=== PATIENT | female | born 1975 | race Asian ===

== ENCOUNTER 2017-04-13 06:40 | Inpatient (IN) | payer OTHER ==
[2017-04-13] MEDS ORDERED: ELECTROLYTE-148 SOLN 500 ML IV ONE (07:00)
[2017-04-13] MEDS ORDERED: CITRIC ACID/SODIUM CITRATE 30 ML UNIT-DOSE CUP PO ONE (07:30)
[2017-04-13] MEDS ORDERED: ELECTROLYTE-148 SOLN 1,000 ML IV SCH (07:45)
--- NOTE | 2017-04-13 07:57 | HP ---
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 No: Murmur Pulmonary: Yes: Asthma (last 3 years ago) Gastrointestinal: Yes: Constipation Renal/: No: UTI ...: 3 ...Para: 2 ...Term: 2 ...LMP: 07/14/16 ... Weeks Gestation by Dates: 39 ...EDC by Dates: 04/20/17 ...EDC by Sono: 04/20/17 Additional OB History: G1 02/24/2003 primary c/section 7'8" [place] des[place]. G2 01/28/2008 repeat c/section 7'10" [facility] in [place] Heme/Onc: No: Anemia Infectious Disease: No: AIDS, HIV, STD's Psych: No: Addictions, Anxiety, Bipolar, Depression, Panic, Psychosis, Schizophrenia, Other - Past Surgical History Past Surgical History: Yes: (02/06 & 01/12) Hx Myomectomy: No Hx Transabdominal Cerclage: No Additional Surgical History: ear surgery in childhood - Smoking History Have you smoked in the past 12 months: No - Alcohol/Substance Use Hx Alcohol Use: No History of Substance Use: reports: None Home Medications - Allergies Allergies/Adverse Reactions: Allergies Allergy/AdvReac Type Severity Reaction Status Date / Time cat dander Allergy Verified 04/13/17 07:28 egg Allergy Verified 04/13/17 07:28 Fish Containing Products Allergy Verified 04/13/17 07:28 milk Allergy Verified 04/13/17 07:28 No Known Drug Allergies Allergy Verified 02/07/18 07:25 peanut Allergy Verified 04/13/17 07:28 soybean Allergy Verified 04/13/17 07:28 tree and shrub pollen Allergy Verified 04/13/17 07:28 wheat Allergy Verified 04/13/17 07:28 ROACHES Allergy Uncoded 04/13/17 07:28 Physical Exam - Maternity Vital Signs: Selected Entries 04/13/17 07:45 Temperature 98.3 F Pulse Rate 77 Respiratory 18 Rate Blood Pressure 146/84 Weight 159 lb Constitutional: Yes: Well Nourished Eyes: Yes: WNL HENT: Yes: WNL, Atraumatic Neck: Yes: WNL Cardiovascular: Yes: WNL, Regular Rate and Rhythm Lungs: Clear to auscultation Breast(s): Yes: WNL - Abdominal Exam/OB Fundal Height: 38 Number of Fetuses: Single Presentation: Vertex Contractions: No Heart Rate (range): 140 Heart Rate Location: Midline Category: I Accelerations: Uniform Decelerations: None - Vaginal Exam/OB Vaginal Bleediing: No Speculum Exam: No Dilatation (cm): close Effacement (%): unefface Amniotic Membrane Status: Intact Presentation: Vertex/Position Station: -3 - Physical Exam Musculoskeletal: Yes: WNL Extremities: Yes: WNL. No: Calf Tenderness Edema: Yes Edema: LLE: 1+, RLE: 1+ Integumentary: Yes: Incision (pfannensteil scar) Deep Tendon Reflex Grade: Normal +2 ...Motor Strength: WNL Psychiatric: Yes: WNL, Alert, Oriented - Labs Lab Results: Laboratory Tests 04/11/17 04/11/17 04/11/17 08:40 08:40 08:40 WBC 9.4 RBC 4.47 Hgb 12.6 Hct 38.7 MCV 86.5 MCH 28.3 MCHC 32.7 RDW 13.8 Plt Count 173 MPV 10.5 Neutrophils % 67.7 Lymphocytes % 24.3 Monocytes % 5.4 Eosinophils % 2.1 Basophils % 0.5 PT with INR 11.40 INR 1.01 Sodium Potassium Chloride Carbon Dioxide BUN Creatinine AST ALT Urine Protein Negative Urine Ketones Negative Urine Nitrite Negative Ur Leukocyte Esterase Trace Urine WBC (Auto) 2 Urine RBC (Auto) <1 RPR Titer 04/11/17 04/11/17 08:40 08:40 WBC RBC Hgb Hct MCV MCH MCHC RDW Plt Count MPV Neutrophils % Lymphocytes % Monocytes % Eosinophils % Basophils % PT with INR INR Sodium 139 Potassium 3.9 Chloride 106 Carbon Dioxide 24 BUN 6 L Creatinine 0.5 L AST 13 L ALT 17 Urine Protein Urine Ketones Urine Nitrite Ur Leukocyte Esterase Urine WBC (Auto) Urine RBC (Auto) RPR Titer Nonreactive Hemorrhage Risk Assessment - Risk Factors Medium Risk Factors: Yes: Prior , uterine surgery,or multiple laparotomies Risk Score: 1 Risk Level: Medium Risk Problem List - Problems (1) 39 weeks gestation of Code(s): Z3A.39 - 39 WEEKS GESTATION OF (2) Previous section Code(s): Z98.891 - HISTORY OF UTERINE SCAR FROM PREVIOUS SURGERY (3) AMA (advanced maternal age) multigravida 35+ Code(s): O09.529 - SUPERVISION OF ELDERLY MULTIGRAVIDA, UNSPECIFIED TRIMESTER Assessment/Plan 42 yrs , , AMA, previous c/sx2, requests for repeat c/s . GBS neg Plan repeat c/section
[2017-04-13] MEDS ORDERED: morphine SULFATE/Preservative Free 0.5 MG/ML (1cc Syringe) ONE (08:07)
[2017-04-13] MEDS ORDERED: ceFAZolin SODIUM 1 GM VIAL ONE (08:07)
[2017-04-13] MEDS ORDERED: morphine SULFATE/Preservative Free 0.5 MG/ML (1cc Syringe) SPIN ONE (08:18)
[2017-04-13] MEDS ORDERED: ACETAMINOPHEN 325 MG TABLET (FP) PO PRN (08:31)
[2017-04-13] MEDS ORDERED: IBUPROFEN 600 MG TABLET (FP) PO PRN ×2 (08:31→09:18)
[2017-04-13] MEDS ORDERED: ONDANSETRON 4 MG/2 ML VIAL IVPUSH PRN (08:31)
[2017-04-13] MEDS ORDERED: OXYTOCIN 10 UNITS/ML VIAL ONE (08:34)
[2017-04-13 09:03] LABS: ARTERIAL BLOOD GAS BASE EXCESS -2.8 meq/l (-2-2); ARTERIAL BLOOD GAS PCO2 59.7 mmHg (35-45); ARTERIAL BLOOD GAS PO2 11.7 mmHg (80-100); ARTERIAL BLOOD GAS pH 7.25 (7.35-7.45)
[2017-04-13 09:06] LABS: VENOUS PC02 49.1 mmHg (38-52); VENOUS PH 7.31 (7.32-7.42)
[2017-04-13 09:07] LABS: VENOUS PO2 23.4 mmHg (28-48)
[2017-04-13] MEDS ORDERED: IBUPROFEN 800 MG/8 ML IJ IVPB PRN (09:18)
[2017-04-13] MEDS ORDERED: METHYLERGONOVINE MALEATE 0.2 MG/1 ML AMP IM PRN (09:18)
--- NOTE | 2017-04-13 09:31 | OP ---
Operative Note - Note: Operative Date: 04/13/17 Pre-Operative Diagnosis: 39 weeks, previous c/sx2, requests repeat c/s Operation: Repeat LFTC/section, lysisi of adhesions Findings: omentum in front of uterus covring lower segment, lysis of adhesions onental were done to free lower segment . Bladder reflection covered with omentum 8.36 Am , baby girl, Op position , 8/9, wt 6Lbs thick meconium, no Amniotic fluid seen both tubes & ovaries normal DR price die finisher forging present in the room Post-Operative Diagnosis: Other (omental adhesions, Oligohydramnios) Surgeon: Sarah Dan Nitrocellulose Maker: Drew Vazquez Anesthesiologist/TELEVISION RECEIVER ANALYZER: Rubio Serrano Anesthesia: Spinal Specimens Removed: cord segment for cord blood gas. cord blood. placenta Estimated Blood Loss (mls): 800 Drains, Volume Out (mls): 100 (larry color , qiu ) Fluid Volume Replaced (mls): 1,000 (iv Ancef 1 gm iv before incision ) Operative Report Dictated: Yes
--- NOTE | 2017-04-13 09:42 | PN ---
Delivery - Delivery Section: Repeat, Low Flap Transverse (Lysis of adhesions omentum) Type of Anesthesia: Spinal EBL (cc): 800 (qiu output 100 ml larry color) Delivery, Single - Stages of Labor Date 1st Stage Initiatied: 04/13/17 Date of Delivery: 04/13/17 Time of Delivery: 08:36 Date Placenta Delivered: 04/13/17 Time Placenta Delivered: 08:38 Placenta: Yes: Manual Removal, Uterine Exploration - Condition of Infant Beauty Specialist/Geologist Present: Yes Name: Patricia Vizcarra Gender: Female Weight: 6 lb Position: OP Total Hours ROM (Hrs/Mins): 2min, meconiuum - 1 Minute Total Score: 8 5 Minutes Total Score: 9 - Feeding Plan Initial Plan: Exclusive throughout hospitalization Remarks - Remarks Remarks: 42 yrs ( [place]) , , 39 weeks , previous c/section x2, gbs neg , requests repeat c/s Pnc at [facility] & 2, [facility] intraop course uneventful
[2017-04-13] MEDS: ACETAMINOPHEN 1000 MG/100 ML VIAL (NON FORMULARY) IVPB PRN ×2 (10:05→20:51)
--- NOTE | 2017-04-13 10:40 | OP ---
DATE OF OPERATION: 04/13/2017 PREOPERATIVE DIAGNOSIS: 39 weeks, previous section x2, request for repeat section. POSTOPERATIVE DIAGNOSIS: 39 weeks, previous section x2, request for repeat section, oligohydramnios and omental adhesions. PROCEDURE PERFORMED: Repeat [id number]-[id number] section and lysis of adhesions. SURGEON: Sarah Dan MD PYROMETER OPERATOR: NEGAR Morrell ANESTHESIOLOGIST: Rubio Serrano M.D. ANESTHESIA: Spinal. INDICATIONS: This is a 42-year-old 3, para 2-0-0-2 female, whose EDC is April 20, and request for repeat . Refuses tubal ligation. The patient is not in labor. DESCRIPTION OF PROCEDURE: The patient's abdomen was shaved and prepped. A Pruitt catheter was placed. She was taken to the operating room table. Spinal anesthesia was given. She was placed in the supine position. The abdomen was painted and draped in the usual manner. A Pfannenstiel incision was made through the previous scar, through the skin and subcutaneous tissue. The scar tissue was incised transversely. The anterior rectus sheath was incised transversely. The rectus muscle was from the rectus sheath. The parietal peritoneum was opened vertically. There were omental adhesions covering the lower part of the uterus and lower uterine segment and the bladder completely. So the omental adhesions were clamped, cut and lysed. Lysis was done. Then ligation with 3-0 plain catgut was done, so the lower segment was freed of the omental adhesions. The bladder reflection was covered with omentum too. The lower uterine segment then was incised transversely. There was no amniotic fluid noted. Moderately thick meconium was noted. The baby was delivered at 8:36 a.m. from the OP position. The cord was clamped and cut. Immediate oral and nasal suction was done. The baby was handed over to the edge trimmer, Dr. Vizcarra, who was present in the room. A cord segment was sent for cord blood gases. Cord blood was collected. Then the placenta was removed completely with the membranes. The uterine incision was closed in 2 layers, continuous locking with Biosyn 0 suture. The 2nd layer was a continuous intermittently locking with Biosyn 0 suture. Hemostasis was verified. Further omental adhesions in the middle of the uterus and the lateral abdominal wall were clamped, cut,ligated , lysis was done. The abdominal wall parietal peritoneum was freed of the omentum. Then irrigation was done. Both tubes and ovaries were normal. Sponge, instrument and needle counts were correct. Then closure of the abdomen was done. The parietal peritoneum was closed with Vicryl 0 suture. The muscles were approximated together with Vicryl 0 interrupted sutures underneath the anterior rectus sheath. Hemostasis was noted. Then the anterior rectus sheath was closed with Vicryl 0 suture; continuous sutures were taken. The skin was mobilized from the underneath scar. Then the subcutaneous tissue was approximated with 2-0 Biosyn suture. The skin was approximated with kimberly. The patient tolerated the procedure well. She was transferred to the recovery room in stable condition. IV Ancef 1 gram was given prior to the incision. Estimated blood loss was 800 mL. Urine output intraoperatively was 100 mL, and IV fluids given were 1000 mL. Jessica [id number] MTDRama
[2017-04-13] MEDS ORDERED: IBUPROFEN 800 MG/8 ML IJ IVPB ONE ×2 (10:42→10:51)
[2017-04-13] MEDS: OXYTOCIN 20 UNITS in 0.9% NS 20 UNIT/1,000 ML INFUS.BAG IV SCH (11:00)
[2017-04-13] MEDS: CEFAZOLIN 1 GM PUSH 1 GM/10 ML DISP.SYRIN IVPUSH SCH ×2 (17:08)
[2017-04-13] MEDS: SIMETHICONE 80 MG TAB.CHEW (FP) PO PRN (20:52)
[2017-04-14] MEDS ORDERED: oxyCODONE HCL 5 MG TABLET ONE ×2 (00:11→05:16)
[2017-04-14] MEDS: SIMETHICONE 80 MG TAB.CHEW (FP) PO PRN ×6 (00:14→22:57)
[2017-04-14] MEDS: oxyCODONE HCL 5 MG TABLET PO PRN ×6 (00:16→22:58)
[2017-04-14] MEDS: CEFAZOLIN 1 GM PUSH 1 GM/10 ML DISP.SYRIN IVPUSH SCH ×2 (02:13→09:26)
[2017-04-14] MEDS: ACETAMINOPHEN 1000 MG/100 ML VIAL (NON FORMULARY) IVPB PRN (04:10)
[2017-04-14] MEDS ORDERED: LACTATED RINGERS SOLUTION 1,000 ML IV SCH (07:45)
[2017-04-14] MEDS ORDERED: oxyCODONE HCL 5 MG TABLET PO PRN (08:00)
[2017-04-14 08:19] LABS: BASO % 0.2 % (0-2.0); EOS % 0.1 % (0-4.5); HEMATOCRIT 24.9 % (32.4-45.2); HEMOGLOBIN 8.2 GM/dL (10.7-15.3); LYMPH % 7.7 % (8-40); MCH 28.4 pg (25.7-33.7); MEAN CELL VOLUME 86.3 fl (80-96); MEAN PLT VOLUME 10.8 fl (7.5-11.1); MONO % 3.7 % (3.8-10.2); NEUT % 88.3 % (42.8-82.8); PLATELET COUNT 171 K/MM3 (134-434); RBC 2.89 M/mm3 (3.60-5.2); RDW 13.7 % (11.6-15.6); WHITE BLOOD COUNT 13.8 K/mm3 (4.0-10.0)
[2017-04-14] MEDS ORDERED: BISACODYL 10 MG SUPP.RECT RC PRN (09:19)
[2017-04-14] MEDS: ENOXAPARIN NA (PORCINE) 40 MG/0.4 ML DISP.SYRIN SQ SCH (09:24)
[2017-04-14] MEDS ORDERED: ACETAMINOPHEN 325 MG TABLET (FP) PO PRN (09:41)
--- NOTE | 2017-04-14 09:59 | PN ---
Post Progress Note - Subjective Subjective: 42 yo Para 3 status post repeat , seen and evaluated. She c/o difficulty breathing and severe abdominal pain ( pain scale 10 ). She only gets little relief with analgesia. She denies any nausea nor vomiting. She's afebrile Post Day: 1 Type of Delivery: Repeat C/S Vital Signs: Vital Signs Temperature 98.5 F 04/14/17 07:40 Pulse Rate 107 H 04/14/17 07:40 Respiratory Rate 20 04/14/17 08:00 Blood Pressure 146/95 04/14/17 07:40 O2 Sat by Pulse Oximetry (%) 100 04/13/17 10:15 Breast Exam: Yes: Soft Uterus: Yes: Other (Unable to palpate) Incision: Yes: Dressing dry and intact Abdomen/GI: Yes: Abdominal Distention, Tender. No: Passing flatus Lochia: Yes: Rubra Lochia, amount: Small Extremities: Yes: Calves non-tender Perineum: Yes: Intact Activity: Other (She's lying in bed) - Labs Labs: CBC WBC 13.8 K/mm3 (4.0-10.0) H D 04/14/17 07:30 RBC 2.89 M/mm3 (3.60-5.2) L D 04/14/17 07:30 Hgb 8.2 GM/dL (10.7-15.3) L D 04/14/17 07:30 Hct 24.9 % (32.4-45.2) L D 04/14/17 07:30 MCV 86.3 fl (80-96) 04/14/17 07:30 MCH 28.4 pg (25.7-33.7) 04/14/17 07:30 MCHC 33.0 g/dl (32.0-36.0) 04/14/17 07:30 RDW 13.7 % (11.6-15.6) 04/14/17 07:30 Plt Count 171 K/MM3 (134-434) 04/14/17 07:30 MPV 10.8 fl (7.5-11.1) 04/14/17 07:30 Neutrophils % 88.3 % (42.8-82.8) H D 04/14/17 07:30 Lymphocytes % 7.7 % (8-40) L D 04/14/17 07:30 Monocytes % 3.7 % (3.8-10.2) L 04/14/17 07:30 Eosinophils % 0.1 % (0-4.5) D 04/14/17 07:30 Basophils % 0.2 % (0-2.0) 04/14/17 07:30 Problem List - Problems (1) Status post repeat low transverse section Code(s): Z98.891 - HISTORY OF UTERINE SCAR FROM PREVIOUS SURGERY Assessment/Plan Status post repeat Abdominal distention R/O bowel obstruction F/U abdominal xray and chest x ray Continue analgesia
[2017-04-14] MEDS: PRENATAL VITAMINS W/ FOLIC ACID TABLET (FP) PO SCH (10:00)
--- NOTE | 2017-04-14 11:54 | PN ---
Progress Note (short form) - Note Progress Note: Anesthesiology Post-op S: POD#1 s/p C/S under spinal with duramorph. O: Pt. is doing well, sitting in chair in NAD. She has been able to walk without difficulty and denies h/a or n/v. No difficulty with urination. VSS. A: 42-year-old woman POD#1 with expected post-op recovery. P: Continue current care by primary team.
[2017-04-14] MEDS ORDERED: IBUPROFEN 600 MG TABLET (FP) PO PRN ×2 (14:52→14:55)
[2017-04-14] MEDS: ACETAMINOPHEN 325 MG TABLET (FP) PO PRN ×2 (18:20→22:57)
[2017-04-14] MEDS ORDERED: DIPHTH,PERTUSS(ACELL),TET 0.5 ML DISP.SYRIN IM ONE (18:30)
[2017-04-14] MEDS: FERROUS SO4 325 MG TABLET (FP) PO SCH (22:42)
[2017-04-15] MEDS: SIMETHICONE 80 MG TAB.CHEW (FP) PO PRN ×4 (02:42→19:24)
[2017-04-15] MEDS: oxyCODONE HCL 5 MG TABLET PO PRN ×4 (02:42→19:24)
[2017-04-15] MEDS: ACETAMINOPHEN 325 MG TABLET (FP) PO PRN ×4 (02:43→19:24)
--- NOTE | 2017-04-15 07:38 | PN ---
Progress Note (short form) - Note Progress Note: pod1 , s/p repeat c/s . c/o cramps, no actve vaginal bleeding, no dizziness CBC, BMP 04/14/17 07:30 Last Vital Signs Temp Pulse Resp BP Pulse Ox 98.9 F 102 H 18 127/77 98 04/14/17 22:00 04/14/17 22:00 04/14/17 22:00 04/14/17 22:00 04/14/17 21:00 abdomen soft, no distension, no cva incision dry, clean no calf tenderness no active bleeding impression pod1 , anemia , asymptomatic plan ambulate, iron, vit repeat cbc pod 3
[2017-04-15] MEDS: ENOXAPARIN NA (PORCINE) 40 MG/0.4 ML DISP.SYRIN SQ SCH (09:11)
[2017-04-15] MEDS: FERROUS SO4 325 MG TABLET (FP) PO SCH ×2 (09:11→22:52)
[2017-04-15] MEDS: PRENATAL VITAMINS W/ FOLIC ACID TABLET (FP) PO SCH (09:11)
[2017-04-15] MEDS: SENNOSIDES/DOCUSATE COMBO (SENNA PLUS) TABLET (UD) PO PRN (22:52)
[2017-04-16] MEDS: OXYTOCIN 20 UNITS in 0.9% NS 20 UNIT/1,000 ML INFUS.BAG IV SCH (02:34)
[2017-04-16] MEDS: ACETAMINOPHEN 325 MG TABLET (FP) PO PRN ×4 (03:12→19:10)
[2017-04-16] MEDS: SIMETHICONE 80 MG TAB.CHEW (FP) PO PRN ×4 (03:12→19:10)
[2017-04-16] MEDS: oxyCODONE HCL 5 MG TABLET PO PRN ×3 (03:13→19:10)
[2017-04-16 06:52] LABS: BASO % 0.3 % (0-2.0); EOS % 2.3 % (0-4.5); HEMATOCRIT 21.1 % (32.4-45.2); LYMPH % 18.9 % (8-40); MCHC 33.7 g/dl (32.0-36.0); MEAN CELL VOLUME 86.3 fl (80-96); MEAN PLT VOLUME 9.2 fl (7.5-11.1); MONO % 5.4 % (3.8-10.2); NEUT % 73.1 % (42.8-82.8); PLATELET COUNT 190 K/MM3 (134-434); RBC 2.45 M/mm3 (3.60-5.2); WHITE BLOOD COUNT 9.7 K/mm3 (4.0-10.0)
[2017-04-16 06:59] LABS: HEMOGLOBIN 7.1 GM/dL (10.7-15.3)
[2017-04-16] MEDS: FERROUS SO4 325 MG TABLET (FP) PO SCH ×2 (09:23→21:10)
[2017-04-16] MEDS: PRENATAL VITAMINS W/ FOLIC ACID TABLET (FP) PO SCH (09:23)
[2017-04-16] MEDS: ENOXAPARIN NA (PORCINE) 40 MG/0.4 ML DISP.SYRIN SQ SCH (09:24)
--- NOTE | 2017-04-16 10:41 | PN ---
Progress Note (short form) - Note Progress Note: pod 3 afebrile , has mild occasional dizziness no vagianl bleeding CBC, BMP 04/16/17 06:40 Last Vital Signs Temp Pulse Resp BP Pulse Ox 97.7 F 82 18 142/82 98 04/15/17 22:00 04/15/17 22:00 04/15/17 22:00 04/15/17 22:00 04/14/17 21:00 abdomen soft, no distension, no cva incision dry , clean no calf tenderness lochia minimal impression anemia , normal BP, pulse , has dizziness , blood transfusion discussed, declined blood transfusion plan cbc in am, iron , vit
[2017-04-16] MEDS: SENNOSIDES/DOCUSATE COMBO (SENNA PLUS) TABLET (UD) PO PRN (21:10)
[2017-04-17] MEDS: oxyCODONE HCL 5 MG TABLET PO PRN (00:29)
[2017-04-17] MEDS: SIMETHICONE 80 MG TAB.CHEW (FP) PO PRN ×2 (00:29→09:47)
[2017-04-17] MEDS: ACETAMINOPHEN 325 MG TABLET (FP) PO PRN ×2 (00:31→09:50)
[2017-04-17 07:42] VITALS: BP 142/86; PULSE 92; TEMP 98.9
[2017-04-17 07:43] LABS: BASO % 0.4 % (0-2.0); EOS % 3.5 % (0-4.5); HEMATOCRIT 23.5 % (32.4-45.2); LYMPH % 13.5 % (8-40); MCH 29.3 pg (25.7-33.7); MCHC 33.8 g/dl (32.0-36.0); MEAN CELL VOLUME 86.5 fl (80-96); MEAN PLT VOLUME 9.1 fl (7.5-11.1); MONO % 5.2 % (3.8-10.2); NEUT % 77.4 % (42.8-82.8); PLATELET COUNT 249 K/MM3 (134-434); RBC 2.72 M/mm3 (3.60-5.2); RDW 13.9 % (11.6-15.6)
[2017-04-17] MEDS: ENOXAPARIN NA (PORCINE) 40 MG/0.4 ML DISP.SYRIN SQ SCH (09:46)
[2017-04-17] MEDS: FERROUS SO4 325 MG TABLET (FP) PO SCH (09:47)
[2017-04-17] MEDS: PRENATAL VITAMINS W/ FOLIC ACID TABLET (FP) PO SCH (09:47)
--- NOTE | 2017-04-17 11:00 | PN ---
Progress Note (short form) - Note Progress Note: pod 4 anemia , no dizziness , ambulating well . HAD BM abdomen soft , no distension, no cva incision dry, clean no calf tenderness no active vaginal bleeding plan d/c home on po iron, vit
--- NOTE | 2017-04-19 10:08 | PATH ---
Surgical Pathology Report Patient Name: SOBIA ANDINO Med. Rec. 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 Specimen(s) Received PLACENTA Clinical History , 39 weeks repeat History of hypertension, mild scoliosis, ear surgery as child, asthma Final Diagnosis PLACENTA, SECTION: 483 g THIRD TRIMESTER PLACENTA WITH TRIVASCULAR UMBILICAL CORD AND UNREMARKABLE PLACENTAL MEMBRANES. Electronically Signed Yaneth Lopez M.D. Gross Description The specimen is received fresh labeled placenta and is a 483 gram, 20.0 x 17.5 x 3.4 cm. placenta with attached membranes and umbilical cord. The attached membranes are resendiz, translucent with focal opacities and insert marginally. The umbilical cord measures 29 cm. in length and averages 1 cm. in diameter. The cord inserts eccentrically, 5 cm. to the nearest margin. No true knots or strictures are identified. Cut surface of the umbilical cord reveals 3 vessels. The surface is colon-blue with minimal fibrin deposition and appropriate caliber vessels. The maternal surface is red-brown with focal defects. Sectioning reveals red-brown, spongy parenchyma. No lesions are identified. Pet Caretaker sections are submitted in three cassettes as follows: 1- membrane rolls and umbilical cord; 2-3- full thickness sections of placenta. 04/15/201704/15/2017
--- NOTE | 2017-04-20 07:04 | DS ---
Physical Exam-FASHION COORDINATOR Vital Signs: Vital Signs Temperature 98.9 F 04/17/17 07:40 Pulse Rate 92 H 04/17/17 07:40 Respiratory Rate 18 04/17/17 07:40 Blood Pressure 142/86 04/17/17 07:40 O2 Sat by Pulse Oximetry (%) 98 04/14/17 21:00 Constitutional: Yes: Well Nourished, Pallor Eyes: Yes: WNL HENT: Yes: WNL, Normocephalic Cardiovascular: Yes: WNL Respiratory: Yes: WNL Gastrointestinal: Yes: WNL, Normal Bowel Sounds, Soft, Other (bm done, tolerating food). No: Distention, Vomiting ...Rectal Exam: Yes: WNL Renal/: Yes: WNL, Other (voiding without difficulty) ....Post : Yes: Uterus firm, Uterus non-tender, Moderate lochia rubra Breast(s): Yes: WNL (bf, pumping milk) Extremities: Yes: WNL. No: Calf Tenderness Edema: Yes Edema: LLE: 1+, RLE: 1+ Integumentary: Yes: WNL Wound/Incision: Yes: Clean/Dry, Well Approximated, [place] Intact, Open to air, Other (pt will RTC for kimberly removal). No: Draining, Reddened, Bleeding Neurological: Yes: WNL ...Motor Strength: WNL Psychiatric: Yes: WNL, Alert, Oriented Labs: CBC, BMP 04/17/17 07:00 Delivery - Delivery Section: Repeat, Low Flap Transverse (Lysis of adhesions omentum) Type of Anesthesia: Spinal Episiotomy/Laceration: None EBL (cc): 800 (qiu output 100 ml larry color) Delivery, Single - Stages of Labor Date 1st Stage Initiatied: 04/13/17 Date of Delivery: 04/13/17 Time of Delivery: 08:36 Time Placenta Delivered: 08:38 Placenta: Yes: Manual Removal, Uterine Exploration - Condition of Infant Aircraft Structural Repair Mechanic/Fiberline Supervisor Present: Yes Name: Patricia Vizcarra Gender: Female Weight: 6 lb Position: OP Total Hours ROM (Hrs/Mins): 2min, meconiuum - 1 Minute Total Score: 8 5 Minutes Total Score: 9 - [place] Feeding Plan Initial Plan: Elected not to breastfeed exclusively throughout hospitalization Remarks - Remarks Remarks: 42 yrs ( [place]) , , 39 weeks , previous c/section x2, gbs neg , requests repeat c/s Pnc at [facility] & 2, [facility] intraop course uneventful . post op first day distention , resolved spontaneously . pt tolerated meals well post op anemia noted, counselled, pt declined transfusion she preferred conservative management by PNV & Iron pills & high iron diet Discharged by Dr Dominguez on 04/17/17 Discharge Summary Reason For Visit: LABOR ADMIT Condition: Stable - Instructions Diet, Activity, Other Instructions: Post Instructions DIET: Continue good diet high in protein, calcium, and iron rich foods. Drink at least eight (8) glasses of water daily in addition to other fluids. ___ Regular diet MEDICATIONS: Continue vitamins and iron as previously directed. Motrin and Tylenol may be taken for minor discomfort. ACTIVITY: Mild to moderate exercise may be started in two (2) weeks. Take frequent rest periods. Resume normal activity after six (6) week check up. WOUND CARE OF OPERATIVE SITE: Continue use of perineal bottle until vaginal discharge stops. Keep area clean. Shower daily. Keep abdominal wound dry. Report any drainage or redness to physician. Tub baths, tampons and douches are not permitted for [address] Breast feeding & or Bottle feeding BREAST CARE: (For those that are not breast feeding): If engorgement occurs: Wear tight fitting bra. Take Tylenol or Motrin for pain. Apply cold packs (ice in bags to each breast ) FAMILY PLANNING: There are many control alternatives to pursue and they should be discussed at your first office visit. You may resume sexual activity after your six (6) week check up. (Remember, breast feeding is not a contraceptive) NEXT PHYSICIAN APPOINTMENT: Be certain to call for a one (1) week appointment, unless otherwise directed. Rtc 1 week, wound check, kimberly removal. Tuesday Call Clinic or got to Emergency Dept if you have any of the following: Heavy vaginal bleeding Painful urination Leg pain Unusual odor noted to vaginal bleeding High fever Red streaking noted on breast Referrals: Sarah Dan MD [Staff Physician] - Disposition: HOME - Home Medications Comprehensive Discharge Medication List: Ambulatory Orders Acetaminophen [Tylenol .Regular Strength -] 500 mg PO Q4H PRN #30 tablet Docusate Sodium [Colace] 100 mg PO BID #60 capsule 04/14/17 Ferrous Sulfate [Feosol] 325 mg PO BID #60 tab 04/14/17 Ibuprofen [Motrin -] 600 mg PO Q4H PRN #30 tablet 04/14/17 Vitamins (Sjr) - 1 tab PO DAILY #30 tablet 04/14/17 Simethicone [Mylicon -] 80 mg PO Q4H PRN tab.chew 04/14/17
== END 2017-04-17 11:15 | disposition home or self-care (01) | DRG 540 ==
LOC: JLDR 06:40 → J3W 11:15
PROVIDERS: ADMIT Obstetrics & Gynecology; ATTEND Obstetrics & Gynecology
PROC: 10D00Z1 Extraction of Products of Conception, Low, Open Approach (ICD-10-PCS; principal; 2017-04-13)
PROC: 0DNU0ZZ Release Omentum, Open Approach (ICD-10-PCS; 2017-04-13)
DX: O34.219 Maternal care for unspecified type scar from previous cesarean delivery (principal); O41.03X0 Oligohydramnios, third trimester, not applicable or unspecified; O99.62 Diseases of the digestive system complicating childbirth; K66.0 Peritoneal adhesions (postprocedural) (postinfection); O90.81 Anemia of the puerperium; Z3A.39 39 weeks gestation of pregnancy; Z37.0 Single live birth
CPT/HCPCS: 36415; 36600; 71045-TC; 74018-TC-FY; 82803; 85025; 88307-TC; 90715

== ENCOUNTER 2020-02-19 08:43 | Emergency (ER) | payer OTHER ==
[2020-02-19 08:56] VITALS: BP 133/87; PULSE 80; TEMP 98.4; BMI 25.4
[2020-02-19 10:40] LABS: BASO % 0.8 % (0-2.0); EOS % 3.8 % (0-4.5); HEMATOCRIT 37.2 % (32.4-45.2); HEMOGLOBIN 12.5 GM/dL (10.7-15.3); LYMPH % 32.9 % (8-40); MCH 26.5 pg (25.7-33.7); MCHC 33.6 g/dl (32.0-36.0); MEAN CELL VOLUME 78.7 fl (80-96); MEAN PLT VOLUME 10.4 fl (7.5-11.1); MONO % 6.4 % (3.8-10.2); NEUT % 56.1 % (42.8-82.8); PLATELET COUNT 246 K/MM3 (134-434); RBC 4.73 M/mm3 (3.60-5.2); RDW 14.2 % (11.6-15.6); WHITE BLOOD COUNT 7.2 K/mm3 (4.0-10.0)
[2020-02-19 11:04] LABS: POTASSIUM 3.6 mmol/L (3.5-5.1)
[2020-02-19 11:11] LABS: ALBUMIN 3.8 g/dl (3.4-5.0); CALCIUM 8.8 mg/dL (8.5-10.1)
[2020-02-19 11:12] LABS: BLOOD UREA NITROGEN 9.6 mg/dL (7-18)
[2020-02-19 11:14] LABS: CREATININE 0.8 mg/dL (0.55-1.3)
[2020-02-19 11:16] LABS: TOT PROT 7.8 g/dl (6.4-8.2)
[2020-02-19 11:17] LABS: BILIRUBIN,TOTAL 1.4 mg/dL (0.2-1)
== END 2020-02-19 11:44 | disposition home or self-care (01) ==
LOC: JER 08:43
DX: Z00.00 Encounter for general adult medical examination without abnormal findings (principal)
CPT/HCPCS: 36415; 80053; 85025; 93005; 93010; 99284-25